=== PATIENT | female | born 1990 | race Caucasian/White ===

== ENCOUNTER 2021-12-21 06:17 | Day surgery (SDC) | payer OTHER ==
[2021-12-20 10:04] LABS: HCG,QUAL RESULT NEGATIVE (NEGATIVE)
[~2021-12-21] VITALS: Ht 170.2 cm; Wt 54.4 kg
[2021-12-21] MEDS ORDERED: ACETAMINOPHEN I.V. 1000 MG 100 ML IV ONE (07:22)
[2021-12-21] MEDS ORDERED: DESFLURANE 15 MIN GAS INH ONE (07:44)
[2021-12-21] MEDS ORDERED: PROPOFOL 200MG/ 20ML VIAL (DIPRIVAN) IV ONE (07:44)
[2021-12-21] MEDS ORDERED: LR 1,000 ML IV.SOLN IV ONE (07:44)
[2021-12-21] MEDS ORDERED: MIDAZOLAM HCL 5 MG/5 ML VIAL ONE (07:44)
[2021-12-21] MEDS ORDERED: PHENYLEPHRINE HCL 10 MG/ML VIAL (NEOSYNEPHRINE) ONE (07:44)
[2021-12-21] MEDS ORDERED: ROCURONIUM BROMIDE 10 MG/ML (ZEMURON) ONE (07:44)
[2021-12-21] MEDS ORDERED: fentaNYL CITRATE/PF 100 MCG/2 ML AMP ONE (07:44)
[2021-12-21] MEDS ORDERED: LIDOCAINE 2%, 20 ML MDV ONE (07:44)
[2021-12-21] MEDS ORDERED: GLYCOPYRROLATE 0.2 MG/ML VIAL ONE (07:44)
[2021-12-21] MEDS ORDERED: DEXAMETHASONE SOD PHOSPHATE 4 MG/ML VIAL ONE (07:44)
[2021-12-21] MEDS ORDERED: ONDANSETRON HCL 4 MG/2 ML VIAL ONE (07:44)
[2021-12-21] MEDS ORDERED: HYDROmorphone 1 MG/ML INJ. CARTRIDGE IVP PRN ×2 (08:45)
[2021-12-21] MEDS ORDERED: hydrALAZINE HCL 20 MG/ML VIAL IVP PRN (08:45)
[2021-12-21] MEDS ORDERED: LABETALOL 100 MG/ 20ML VIAL IVP PRN (08:45)
[2021-12-21] MEDS ORDERED: LR 1,000 ML IV SCH (08:45)
[2021-12-21] MEDS ORDERED: METOCLOPRAMIDE HCL 10 MG/2 ML VIAL IVP PRN (08:45)
[2021-12-21] MEDS ORDERED: MEPERIDINE HCL/PF 25 MG/ML DISP.SYRIN IVP PRN (08:45)
[2021-12-21] MEDS ORDERED: MIDAZOLAM HCL 2 MG/2 ML VIAL (VERSED) IVP PRN (08:45)
[2021-12-21] MEDS ORDERED: HYDROmorphone 1 MG/ML INJ. CARTRIDGE ONE (10:24)
[2021-12-21 11:43] VITALS: BP_SYST 95
== END 2021-12-21 12:08 | disposition home or self-care (01) ==
LOC: SDS 06:17 → SMU 06:20 → SDS 12:08
PROVIDERS: ATTEND Otolaryngology
DX: J35.01 Chronic tonsillitis (principal); F41.9 Anxiety disorder, unspecified; K90.0 Celiac disease; Z20.822 Contact with and (suspected) exposure to COVID-19
CPT/HCPCS: 84703; 36415; 42826; 88304; U0003; J1100; J3490; J2001; J2250; J2405; J2370; J2704; J3010; J1170; J7120; J0131